=== PATIENT | female | born 1985 | race Caucasian/White ===

== ENCOUNTER 2017-11-23 15:54 | Inpatient (IN) | payer OTHER ==
[2017-11-23 16:38] LABS: #Basophils 0.1 thou/uL (0.0-0.2); #Eosinphils 0.3 thou/uL (0.0-0.7); #Lymphocytes 3.8 thou/uL (1.20-3.40); #Monocytes 1.2 thou/uL (0.11-0.59); #Neutrophils 9.9 thou/uL (1.40-6.50); %Basophils 0.8 % (0.0-1.0); %Eosinophils 1.8 % (0.0-10.0); %Lymphocytes 24.7 % (21.0-51.0); %Neutrophils 64.7 % (42.0-75.0); Hemoglobin 12.1 g/dL (12.0-16.0); Mean Corpuscular HGB CONC 34.1 g/dL (32.0-36.0); Mean Corpuscular Hemoglobin 29.2 pg (27.0-31.0); Mean Corpuscular Volume 85.8 fl (81.0-99.0); Mean Platelet Volume 7.8 fL (7.4-10.4); Platelet Count 387 thou/uL (130-400); RBC Distribution Width 11.4 % (11.5-14.5); Red Blood Cell (RBC) Count 4.14 mill/uL (4.20-5.40); White Blood Cell (WBC) Count 15.3 thou/uL (4.8-10.8)
[2017-11-23 16:52] LABS: ALT (SGPT) 32 U/L (8-55); AST (SGOT) 15 U/L (5-34); Alkaline Phosphatase 68 U/L (40-150); Anion Gap 14 mmol/L (10-20); BUN (Urea Nitrogen) 19 mg/dL (7.0-18.7); Bilirubin, Total 0.1 mg/dL (0.2-1.2); Calc. Creatinine Clearance 0 mL/min (70-130); Calcium 9.6 mg/dL (7.8-10.44); Carbon Dioxide 23 mmol/L (22-29); Chloride 96 mmol/L (98-107); Estimated GFR-MDRD 87; Glucose 516 mg/dL (70-105); Lipase 38 U/L (8-78); Potassium 4.4 mmol/L (3.5-5.1); Sodium 129 mmol/L (136-145)
--- NOTE | 2017-11-23 17:07 | RAD ---
LEFT HAND THREE VIEWS: 11/23/17 HISTORY: Left hand pain, trauma. FINDINGS/IMPRESSION: No acute fracture or dislocation is identified. POS: GENNY
[2017-11-23] MEDS ORDERED: Insulin Regular 300 UNITS/3 ML VIAL ONE (17:38)
[2017-11-23] MEDS ORDERED: Piperacillin/Tazobactam 3.375 GM VIAL ONE (17:38)
[2017-11-23] MEDS ORDERED: Sodium Chloride 0.9% 100 ML ONE (17:53)
[2017-11-23] MEDS ORDERED: Nicotine 21 MG PATCH ONE (18:16)
[2017-11-23 20:27] VITALS: BMI 21.2
[2017-11-23] MEDS ORDERED: Sodium Chloride 0.9% 1,000 ML IV SCH (20:45)
[2017-11-23] MEDS ORDERED: Dextrose 5% in Water 1,000 ML IV PRN (21:22)
[2017-11-23] MEDS ORDERED: HumaLOG 300 UNITS/3 ML VIAL SC PRN ×2 (21:22)
[2017-11-23] MEDS ORDERED: Dextrose 50% Abboject 50 ML SYRINGE SLOW IVP PRN (21:22)
[2017-11-23] MEDS ORDERED: Morphine 5 MG/ML SYRINGE SLOW IVP SCH (21:30)
[2017-11-23] MEDS ORDERED: Insulin Detemir 100 UNITS/ML 50 UNITS in Pre-Filled Syringe 1 EACH SC SCH (21:30)
[2017-11-23] MEDS ORDERED: Insulin Detemir 100 UNITS/ML 25 UNITS in Pre-Filled Syringe 1 EACH SC SCH (23:00)
[2017-11-23] MEDS ORDERED: Albuterol Sulfate 2.5 mg/3 ml Neb NEB PRN (23:42)
[2017-11-23] MEDS ORDERED: Acetaminophen 325 MG TAB PO PRN (23:42)
[2017-11-24] MEDS: Sodium Chloride 0.9% 1,000 ML IV SCH ×4 (00:01→23:38)
[2017-11-24] MEDS: HYDROcodone/Acetaminophen 5/325 mg Tablet PO PRN ×5 (00:17→23:43)
[2017-11-24] MEDS: Piperacillin/Tazobactam 3.375 GM in Sodium Chloride 0.9% 100 ML IVPB SCH ×7 (00:35→23:37)
[2017-11-24] MEDS: Ibuprofen 600 MG TAB PO PRN ×2 (00:37→06:21)
[2017-11-24] MEDS ORDERED: Piperacillin/Tazobactam 3.375 GM in Sodium Chloride 0.9% 100 ML IVPB SCH (02:00)
[2017-11-24] MEDS ORDERED: Vancomycin HCl 1 GM in Premix Bag 1 BAG IVPB SCH (04:00)
[2017-11-24] MEDS: Morphine 5 MG/ML SYRINGE SLOW IVP PRN ×4 (04:17→17:21)
[2017-11-24] MEDS: Vancomycin HCl 1 GM in Premix Bag 1 BAG IVPB SCH ×2 (04:21→15:28)
[2017-11-24 04:26] LABS: #Basophils 0.1 thou/uL (0.0-0.2); #Eosinphils 0.3 thou/uL (0.0-0.7); #Lymphocytes 3.9 thou/uL (1.20-3.40); #Monocytes 0.9 thou/uL (0.11-0.59); #Neutrophils 8.8 thou/uL (1.40-6.50); %Basophils 0.4 % (0.0-1.0); %Eosinophils 1.8 % (0.0-10.0); %Lymphocytes 28.1 % (21.0-51.0); %Monocytes 6.4 % (0.0-10.0); %Neutrophils 63.2 % (42.0-75.0); Hemoglobin 12.2 g/dL (12.0-16.0); Mean Corpuscular HGB CONC 34.1 g/dL (32.0-36.0); Mean Corpuscular Hemoglobin 30.3 pg (27.0-31.0); Mean Corpuscular Volume 88.7 fl (81.0-99.0); Platelet Count 390 thou/uL (130-400); RBC Distribution Width 11.6 % (11.5-14.5); Red Blood Cell (RBC) Count 4.02 mill/uL (4.20-5.40); White Blood Cell (WBC) Count 13.9 thou/uL (4.8-10.8)
[2017-11-24 04:30] LABS: Hemoglobin A1c 11.4 % (4.0-6.0)
[2017-11-24 04:45] LABS: Anion Gap 12 mmol/L (10-20); BUN (Urea Nitrogen) 10 mg/dL (7.0-18.7); Calc. Creatinine Clearance 107 mL/min (70-130); Calcium 9.1 mg/dL (7.8-10.44); Carbon Dioxide 22 mmol/L (22-29); Chloride 100 mmol/L (98-107); Estimated GFR-MDRD Greater than 90; Glucose 262 mg/dL (70-105); Potassium 4.4 mmol/L (3.5-5.1); Sodium 130 mmol/L (136-145)
[2017-11-24] MEDS ORDERED: Sodium Chloride 0.9% 1,000 ML IV SCH (06:00)
--- NOTE | 2017-11-24 06:31 | HP ---
PRIMARY CARE PHYSICIAN: Rodney____Starr PRESENTING COMPLAINT: Hand pain. HISTORY OF PRESENT ILLNESS: A 32-year-old female with a past medical history of diabetes mellitus an d asthma who presents to the emergency room with complaints of pain in her left fifth digit. She rep orts that while doing dishes, she accidentally hit her left hand on the kitchen counter while shaking her hands dry. Since then she has had pain, swelling, and redness to the fifth digit spread into th e mid forearm. The pain is dull, 10/10 throbbing with no aggravating or relieving factors. It is as sociated with erythema and warmth. She reports no fevers, chills, shortness of breath, nausea, vomit ing, diarrhea. PAST MEDICAL HISTORY: Diabetes mellitus, legally blind, asthma. PAST SURGICAL HISTORY: D&C, . FAMILY HISTORY: Reviewed and noncontributory. SOCIAL HISTORY: Smokes cigarettes and drinks alcohol occasionally. Does not use illicit drugs. ALLERGIES: None. HOME MEDICATIONS: Buspirone 10 mg b.i.d., nicotine 21 mg patch transdermal daily, zolpidem 5 mg at b edtime, fluoxetine 10 mg daily, Humalog 5-7 units t.i.d. with meals subcutaneously, insulin detemir 28 units b.i.d. REVIEW OF SYSTEMS: Twelve point review of systems conducted and negative except as stated in HPI. PHYSICAL EXAMINATION: GENERAL: In mild distress from pain. HEENT: Normocephalic, atraumatic. Not pale, anicteric. Moist mucous membranes. RESPIRATORY: Vesicular breath sounds bilaterally. No wheezes or rales. CARDIOVASCULAR: Regular rate and rhythm, S1 and S2 only. No murmurs, rubs or gallops. ABDOMEN: Soft, nontender, nondistended. Bowel sounds positive. No hepatosplenomegaly. NEUROLOGIC: Alert and well oriented to time, place and person. No focal deficits. SKIN: Erythema, differential warmth and swelling in the left fifth digit. MUSCULOSKELETAL: Differential warmth, erythema and limited range of movement of the left fifth digit with what seems to be some fluid collection. ASSESSMENT AND PLAN: 1. Left hand cellulitis/flexor tenosynovitis. She has been started on pain control and broad spectr um antibiotics. We will get a consultation with Hand Surgery, Dr. Lopez who stated that the ortho pedic surgery should be consulted first. 2. Diabetes mellitus. The patient is hyperglycemic. We will hydrate with normal saline and reinsti tute her home regimen and sliding scale insulin on a diabetic diet as well as hypoglycemia protocol w ill also be instituted. We will obtain A1c in the a.m. 3. Tobacco abuse. We will continue on nicotine patch and counseled on cessation. LABORATORY DATA: Sodium 129, anion gap 14, glucose 516 on arrival, but improved to 356. Lactic acid 1.2. Hematology with leukocytosis 15.3. Beta hydroxybutyrate normal. Hand x-ray, this revealed no acute fracture or dislocation. CODE STATUS: FULL CODE.
[2017-11-24] MEDS ORDERED: Chloraseptic Spray 180 ml Bottle PO PRN (07:33)
[2017-11-24] MEDS ORDERED: Milk Of Magnesia 30 ML UDCUP PO PRN (07:33)
[2017-11-24] MEDS ORDERED: Loratadine 10 MG TAB PO PRN (07:33)
[2017-11-24] MEDS ORDERED: Sodium Chloride 0.65% Nasal 44 ML BOT EA NARE PRN (07:33)
[2017-11-24] MEDS ORDERED: hydrALAZINE 20 MG/ML VIAL SLOW IVP PRN (07:33)
[2017-11-24] MEDS ORDERED: Eucerin (Mineral Oil/Petrolatum,White) 30 gm Jar TOP PRN (07:33)
[2017-11-24] MEDS ORDERED: Artificial Tears 18 DROP/0.9 ML EA EYE PRN (07:33)
[2017-11-24] MEDS ORDERED: Mag-Al 1200 mg/1200 mg/30 ML UDCUP PO PRN (07:33)
[2017-11-24] MEDS ORDERED: Loperamide HCl 2 MG CAP PO PRN (07:33)
[2017-11-24] MEDS ORDERED: Ondansetron ODT 4 MG TAB PO PRN (07:33)
[2017-11-24] MEDS ORDERED: Ondansetron HCl/PF 4 MG/2 ML Vial IVP PRN ×2 (07:33→18:34)
[2017-11-24] MEDS ORDERED: Diabetic Tussin 200 MG/10 ML UDCUP PO PRN (07:33)
[2017-11-24] MEDS: Nicotine 21 MG PATCH TD SCH (08:32)
[2017-11-24] MEDS: Famotidine 20 MG TAB PO SCH ×2 (08:32→21:14)
[2017-11-24] MEDS: FLUoxetine HCl 10 MG CAP PO SCH (08:32)
[2017-11-24] MEDS: HumaLOG 300 UNITS/3 ML VIAL SC SCH ×3 (08:33→15:32)
[2017-11-24] MEDS: Docusate 100 MG CAP PO SCH ×2 (08:33→21:13)
[2017-11-24] MEDS: busPIRone HCl 10 MG TAB PO SCH ×2 (08:33→21:14)
[2017-11-24] MEDS: Insulin Detemir 100 UNITS/ML 35 UNITS in Pre-Filled Syringe 1 EACH SC SCH ×2 (08:34→21:14)
[2017-11-24] MEDS ORDERED: Insulin Detemir 100 UNITS/ML 50 UNITS in Pre-Filled Syringe 1 EACH SC SCH (09:00)
[2017-11-24] MEDS ORDERED: Insulin Detemir 100 UNITS/ML 25 UNITS in Pre-Filled Syringe 1 EACH SC SCH ×2 (09:00→21:00)
--- NOTE | 2017-11-24 09:27 | PDOC.PN ---
- Subjective Encounter Start Date: 11/24/17 Encounter Start Time: 08:20 -: old records requested/rev pt has left hand pain, left little finger is swollen, red and tender - Objective Resuscitation Status: Resuscitation Status FULL:Full Resuscitation MAR Reviewed: Yes Vital Signs & Weight: Vital Signs (12 hours) Temp Pulse Resp BP Pulse Ox 11/24/17 08:00 97.3 F L 100 16 110/73 96 11/24/17 04:00 97.8 F 110 H 20 107/75 96 11/24/17 00:00 97.4 F L 117 H 20 121/83 93 L Weight Weight 116 lb Result Diagrams: 11/24/17 03:52 11/24/17 03:52 Additional Labs: Accuchecks 11/24/17 11/23/17 05:25 20:50 POC Glucose 212 H 356 H Radiology Reviewed by me: Yes Phys Exam - Physical Examination Constitutional: NAD HEENT: PERRLA, moist MMs, sclera anicteric Neck: no JVD, supple Respiratory: no wheezing, no rales, no rhonchi Cardiovascular: RRR, no significant murmur, no rub Gastrointestinal: soft, non-tender, no distention, positive bowel sounds Musculoskeletal: no edema, pulses present left litter finger cellulitis Neurological: non-focal, normal sensation, moves all 4 limbs Psychiatric: normal affect, A&O x 3 Skin: no rash, normal turgor Dx/Plan (1) Cellulitis of left hand Code(s): L03.114 - CELLULITIS OF LEFT UPPER LIMB Status: Acute (2) Hyponatremia Code(s): E87.1 - HYPO-OSMOLALITY AND HYPONATREMIA Status: Acute (3) Systemic inflammatory response syndrome (SIRS) due to infection Code(s): A41.9 - SEPSIS, UNSPECIFIED ORGANISM Status: Acute (4) Anxiety and depression Code(s): F41.9 - ANXIETY DISORDER, UNSPECIFIED; F32.9 - MAJOR DEPRESSIVE DISORDER, SINGLE EPISODE, UNSPECIFIED Status: Chronic (5) Asthma Code(s): J45.909 - UNSPECIFIED ASTHMA, UNCOMPLICATED Status: Chronic (6) Diabetes type 2, uncontrolled Code(s): E11.65 - TYPE 2 DIABETES MELLITUS WITH HYPERGLYCEMIA Status: Chronic (7) Tobacco abuse Code(s): Z72.0 - TOBACCO USE Status: Chronic - Plan cont current plan of care, continue antibiotics * increase levemir insulin * continue ivf * pain control * add toradol * hand surgeon consulted * medication reviewed as below * symptomatic treatment. * continue vancomycin and zosyn * home medication reconciled Review of Systems - Review of Systems Constitutional: negative: fever, chills, sweats, weakness, malaise, other Eyes: negative: Pain, Vision Change, Conjunctivae Inflammation, Eyelid Inflammation, Redness, Other ENT: negative: Ear Pain, Ear Discharge, Nose Pain, Nose Discharge, Nose Congestion, Mouth Pain, Mouth Swelling, Throat Pain, Throat Swelling, Other Respiratory: negative: Cough, Dry, Shortness of Breath, Hemoptysis, SOB with Excertion, Pleuritic Pain, Sputum, Wheezing Cardiovascular: negative: chest pain, palpitations, orthopnea, paroxysmal nocturnal dyspnea, edema, light headedness, other Gastrointestinal: negative: Nausea, Vomiting, Abdominal Pain, Diarrhea, Constipation, Melena, Hematochezia, Other Genitourinary: negative: Dysuria, Frequency, Incontinence, Hematuria, Retention , Other Musculoskeletal: Hand Pain. negative: Neck Pain, Shoulder Pain, Arm Pain, Back Pain, Leg Pain, Foot Pain, Other Skin: negative: Rash, Lesions, Aj, Bruising, Other - Medications/Allergies Allergies/Adverse Reactions: Allergies Allergy/AdvReac Type Severity Reaction Status Date / Time No Known Allergies Allergy Verified 11/23/17 20:46 Medications: Current Medications Acetaminophen (Tylenol) 650 mg PO Q4H PRN PRN Reason: Headache/Fever or Pain Hydrocodone Bitart/Acetaminophen ([employer] 5/325) 1 tab PO Q4H PRN PRN Reason: Moderate Pain (4-6) Last Admin: 11/24/17 06:27 Dose: 1 tab Al Hydroxide/Mg Hydroxide (Maalox) 15 ml PO Q4H PRN PRN Reason: Heartburn or Indigestion Albuterol Sulfate (Ventolin) 2.5 mg NEB [id number] PRN PRN Reason: Wheezing Artificial Tears (Tears Naturale) 0 drop EA EYE PRN PRN PRN Reason: Dry Eyes Buspirone HCl (Buspar) 10 mg PO BID [facility] Last Admin: 11/24/17 08:33 Dose: 10 mg Dextrose/Water (Dextrose 50%) 25 gm SLOW IVP PRN PRN PRN Reason: Hypoglycemia Docusate Sodium (Colace) 100 mg PO BID REPLACED BY [facility] Last Admin: 11/24/17 08:33 Dose: Not Given Famotidine (Pepcid) 20 mg PO BID REPLACED BY [facility] Last Admin: 11/24/17 08:32 Dose: 20 mg Fluoxetine HCl (Prozac) 10 mg PO DAILY REPLACED BY [facility] Last Admin: 11/24/17 08:32 Dose: 10 mg Glucagon (Glucagon) 1 mg IM PRN PRN PRN Reason: Hypoglycemia Guaifenesin (Robitussin Sf) 200 mg PO Q4H PRN PRN Reason: Cough Hydralazine HCl (Apresoline) 10 mg SLOW IVP Q4H PRN PRN Reason: Systolic BP > 180 Dextrose/Water (D5w) 1,000 mls @ 0 mls/hr IV .Q0M PRN; As Directed PRN Reason: Hypoglycemia Piperacillin Sod/Tazobactam (Sod 3.375 gm/ Sodium Chloride) 100 mls @ 200 mls/ hr IVPB Q6HR REPLACED BY [facility] Last Admin: 11/24/17 06:23 Dose: 100 mls Sodium Chloride (Normal Saline 0.9%) 1,000 mls @ 125 mls/hr IV .Q8H REPLACED BY [facility] Last Admin: 11/24/17 08:34 Dose: Not Given Vancomycin HCl 1 gm/ Device 200 mls @ 200 mls/hr IVPB 0400,1600 REPLACED BY [facility] Last Admin: 11/24/17 04:21 Dose: 200 mls Insulin Detemir 35 units/ (Miscellaneous Medication) 0.35 mls @ 0 mls/hr SC HS REPLACED BY [facility] Insulin Detemir 35 units/ (Miscellaneous Medication) 0.35 mls @ 0 mls/hr SC QAM REPLACED BY [facility] Last Admin: 11/24/17 08:34 Dose: Not Given Ibuprofen (Motrin) 600 mg PO Q6H PRN PRN Reason: Mild-Moderate Pain (1-5) Last Admin: 11/24/17 06:21 Dose: 600 mg Insulin Human Lispro (Humalog) 5 units SC TID-[facility] Last Admin: 11/24/17 08:33 Dose: Not Given Insulin Human Lispro (Humalog) 0 units SC .AGGRESSIVE SLIDING PRN PRN Reason: Aggressive Correctional Scale Insulin Human Lispro (Humalog) 0 units SC .BEDTIME SLIDING SC PRN PRN Reason: Bedtime Correctional Scale Loperamide HCl (Imodium) 2 mg PO PRN PRN PRN Reason: Diarrhea/Loose Stools Loratadine (Claritin) 10 mg PO DAILYPRN PRN PRN Reason: Sinus Symptoms Magnesium Hydroxide (Milk Of Magnesium) 30 ml PO DAILYPRN PRN PRN Reason: Constipation Mineral Oil/White Petrolatum (Eucerin Cream) 0 gm TOP BIDPRN PRN PRN Reason: Dry Skin Miscellaneous Medication (Pharmacy To Dose) 1 each IVPB PRN PRN PRN Reason: Pharmacy to dose Morphine Sulfate (Morphine) 4 mg SLOW IVP Q4H PRN PRN Reason: Severe Pain (7-10) Last Admin: 11/24/17 08:31 Dose: 4 mg Nicotine (Nicoderm Patch) 21 mg TD DAILY REPLACED BY [facility] Last Admin: 11/24/17 08:32 Dose: 21 mg Ondansetron HCl (Zofran Odt) 4 mg PO Q6H PRN PRN Reason: Nausea/Vomiting Ondansetron HCl (Zofran) 4 mg IVP Q6H PRN PRN Reason: Nausea/Vomiting Phenol (Chloraseptic [place] 180 Ml Bot) 0 ml PO PRN PRN PRN Reason: Sore Throat Sodium Chloride (Flush - Normal Saline) 10 ml IVF Q12HR REPLACED BY [facility] Last Admin: 11/24/17 08:35 Dose: Not Given Sodium Chloride (Flush - Normal Saline) 10 ml IVF PRN PRN PRN Reason: Saline Flush Last Admin: 11/23/17 21:50 Dose: 10 ml Sodium Chloride ([place] Nasal [place] 0.65%) 0 ml EA NARE QIDPRN PRN PRN Reason: Nasal Congestion Zolpidem Tartrate (Ambien) 5 mg PO HS PRN PRN Reason: Insomnia
[2017-11-24] MEDS: Ketorolac Tromethamine 30 MG/ML VIAL IVP PRN (11:19)
[2017-11-24] MEDS ORDERED: Ondansetron HCl/PF 4 MG/2 ML Vial ONE (13:58)
[2017-11-24] MEDS ORDERED: Propofol 200 MG/20 ML VIAL ONE (13:58)
[2017-11-24] MEDS ORDERED: PHENYLEPHRINE-NS 100 MCG/ML 10 ML SYRINGE ONE (13:58)
[2017-11-24] MEDS ORDERED: Lidocaine 1% PF 5 ML VIAL ONE (13:58)
[2017-11-24] MEDS ORDERED: Lidocaine 1% (PF) 30 ML VIAL ONE (18:09)
[2017-11-24] MEDS ORDERED: Bupivacaine 0.5% 10 ML VIAL ONE (18:09)
[2017-11-24] MEDS ORDERED: Bacitracin Zinc Ointment 30 gm TUBE ONE (18:10)
[2017-11-24] MEDS ORDERED: Thrombin 5000 UNITS/5 ML VIAL ONE (18:10)
[2017-11-24] MEDS ORDERED: Promethazine HCl 25 MG/ML VIAL SLOW IVP PRN (18:34)
[2017-11-24] MEDS ORDERED: Promethazine HCl 25 MG/ML VIAL IM PRN (18:34)
[2017-11-24] MEDS ORDERED: Fentanyl 250 MCG/5 ML VIAL ONE (18:37)
[2017-11-24] MEDS ORDERED: Midazolam HCl 2 mg/2 ml Vial ONE (18:42)
[2017-11-24] MEDS ORDERED: Morphine 2 MG/ML SYRINGE ONE (18:42)
[2017-11-24] MEDS ORDERED: Sodium Chloride 0.9% 10 ML ONE (18:51)
[2017-11-24] MEDS: Zolpidem Tartrate 5 MG TAB PO PRN (23:43)
[2017-11-25 04:12] LABS: #Basophils 0.1 thou/uL (0.0-0.2); #Eosinphils 0.2 thou/uL (0.0-0.7); #Lymphocytes 2.9 thou/uL (1.20-3.40); #Monocytes 0.8 thou/uL (0.11-0.59); #Neutrophils 9.8 thou/uL (1.40-6.50); %Basophils 0.8 % (0.0-1.0); %Eosinophils 1.8 % (0.0-10.0); %Lymphocytes 20.7 % (21.0-51.0); %Monocytes 5.8 % (0.0-10.0); %Neutrophils 70.9 % (42.0-75.0); Hemoglobin 12.4 g/dL (12.0-16.0); Mean Corpuscular HGB CONC 33.6 g/dL (32.0-36.0); Mean Corpuscular Hemoglobin 30.5 pg (27.0-31.0); Mean Corpuscular Volume 90.8 fl (81.0-99.0); Mean Platelet Volume 7.4 fL (7.4-10.4); Platelet Count 354 thou/uL (130-400); RBC Distribution Width 11.8 % (11.5-14.5); Red Blood Cell (RBC) Count 4.06 mill/uL (4.20-5.40); White Blood Cell (WBC) Count 13.8 thou/uL (4.8-10.8)
[2017-11-25 04:29] LABS: Anion Gap 14 mmol/L (10-20); BUN (Urea Nitrogen) 8 mg/dL (7.0-18.7); Calc. Creatinine Clearance 98 mL/min (70-130); Calcium 8.9 mg/dL (7.8-10.44); Carbon Dioxide 21 mmol/L (22-29); Chloride 102 mmol/L (98-107); Estimated GFR-MDRD Greater than 90; Glucose 274 mg/dL (70-105); Potassium 4.4 mmol/L (3.5-5.1); Sodium 133 mmol/L (136-145)
[2017-11-25 04:32] LABS: Vancomycin, Trough 8.1 ug/mL
[2017-11-25] MEDS: Vancomycin HCl 1 GM in Premix Bag 1 BAG IVPB SCH ×3 (04:56→21:55)
[2017-11-25] MEDS: Ketorolac Tromethamine 30 MG/ML VIAL IVP PRN ×3 (04:57→19:41)
[2017-11-25] MEDS: Piperacillin/Tazobactam 3.375 GM in Sodium Chloride 0.9% 100 ML IVPB SCH ×3 (06:04→17:33)
[2017-11-25] MEDS: HYDROcodone/Acetaminophen 5/325 mg Tablet PO PRN ×3 (06:07→17:33)
--- NOTE | 2017-11-25 06:31 | OP ---
DATE OF PROCEDURE: 11/24/2017 PREOPERATIVE DIAGNOSIS: Small finger abscess in distal phalanx with sheath involvement (infectious f lexor tenosynovitis). POSTOPERATIVE DIAGNOSIS: Small finger abscess distal phalanx with sheath involvement (infectious fl exor tenosynovitis). FINDINGS: 1. Left small finger gross thick purulence, almost 1.5 to 2 mL. 2. Gross purulence found at the level of the sheath between A3 and A2 pulleys and then mucopurulence was found proximal to the A1 annel inlet. PROCEDURES PERFORMED: 1. Left small finger abscess incision and drainage. 2. Left small finger sheath, flexor drainage with indwelling catheter. INDICATION: The patient reports puncture wound to the finger approximately 3-4 days ago and noticed poor ability to move the finger last night, increased pain. He reports [place] signs. TOURNIQUET TIME: 17 minutes. ESTIMATED BLOOD LOSS: 10 mL. Finger became pink when the tourniquet was released, except for the ar ea around the nail bed where there was pallor because of the more extensive dissection. DESCRIPTION OF PROCEDURE: After successful general LMA technique, limb was prepped and draped. She had 10 mL of 0.5% Marcaine block proximal to the A1 annel, because we knew we would have to make an incision here. We then exsanguinated the limb, inflated tourniquet to 250 mmHg pressure. Then, we w ent to our sites. The patient then had incision in the midline beginning at the DIP joint and going to the level of the distal third of the nail. On the ulnar side, he had a Parviz incision outlined c entered over the PIP joint, approximately 2 cm, and then 1.5 cm A1 annel incision beginning just pro ximal to the A1 annel obliquely. This was carried through the skin and subcutaneous tissue beginnin g with the distal phalanx first and we opened the distal one half, there was gross purulence escaping to the point we had to perform irrigation and debridement here using a tenotomy scissor, a [place] bl stefany, and irrigation with excisional technique, findings of gross purulence and mild wound necrosis. Once we finished this, we then opened the tendon sheath using the Parviz incision over the PIP joint until we could identify the interspace between the A2 and A3 annel. We also placed a 16-gauge Angio cath. We then irrigated out the tendon with 15-20 mL normal saline with antibiotics inside. We ernie monroy made a proximal incision, visualized the digital nerve, and protected the nail. Seeing the A1 pu lley as the tendon entered, we lifted up the tendon and placed a catheter here, 18-gauge. Now, we h ad thorough irrigation. We irrigated a total of 100 mL through this mechanism, and then placed 900 m L in the distal tip where the gross purulence first started and was greatest. We left the indwelling catheter in the proximal incision, not the distal one, covered it with wet-to- dry dressings and a bulky dressing with a Kerlix. The patient left the operating room without eviden ce of anesthetic or operative complication.
[2017-11-25] MEDS: Morphine 5 MG/ML SYRINGE SLOW IVP PRN ×4 (07:30→19:36)
[2017-11-25] MEDS: HumaLOG 300 UNITS/3 ML VIAL SC SCH ×3 (07:32→17:41)
[2017-11-25] MEDS: Famotidine 20 MG TAB PO SCH ×2 (07:32→20:45)
[2017-11-25] MEDS: FLUoxetine HCl 10 MG CAP PO SCH (07:32)
[2017-11-25] MEDS: busPIRone HCl 10 MG TAB PO SCH ×2 (07:32→20:45)
[2017-11-25] MEDS: Nicotine 21 MG PATCH TD SCH (07:32)
[2017-11-25] MEDS: Docusate 100 MG CAP PO SCH ×2 (07:32→20:45)
--- NOTE | 2017-11-25 09:06 | PDOC.PN ---
- Subjective Encounter Start Date: 11/25/17 Encounter Start Time: 07:20 Patient seen and examined. No new complaints. No overnight events s/p I & D, still has left finger and hand pain - Objective Resuscitation Status: Resuscitation Status FULL:Full Resuscitation MAR Reviewed: Yes Vital Signs & Weight: Vital Signs (12 hours) Temp Pulse Resp BP Pulse Ox 11/25/17 07:46 98.1 F 106 H 18 98 11/25/17 04:00 98.1 F 106 H 18 132/86 98 11/25/17 00:00 97.4 F L 105 H 18 119/79 96 11/24/17 22:30 103 H 18 119/84 96 11/24/17 22:00 98.3 F 101 H 18 129/81 100 11/24/17 21:30 98 18 138/96 H 98 Weight Weight 116 lb Result Diagrams: 11/25/17 03:39 11/25/17 03:39 Additional Labs: Accuchecks 11/25/17 11/24/17 11/24/17 05:08 23:51 20:42 POC Glucose 238 H 308 H 175 H 11/24/17 11/24/17 16:15 11:53 POC Glucose 158 H 74 Phys Exam - Physical Examination Constitutional: NAD HEENT: PERRLA, moist MMs, sclera anicteric, oral pharynx no lesions Neck: no JVD, supple Respiratory: no wheezing, no rales, no rhonchi Cardiovascular: RRR, no significant murmur, no rub Gastrointestinal: soft, non-tender, no distention, positive bowel sounds Musculoskeletal: no edema, pulses present left hand with dressing Neurological: non-focal, normal sensation, moves all 4 limbs Lymphatic: no nodes Psychiatric: normal affect, A&O x 3 Skin: no rash, normal turgor Dx/Plan (1) Cellulitis of left hand Code(s): L03.114 - CELLULITIS OF LEFT UPPER LIMB Status: Acute (2) Cellulitis of little finger Code(s): L03.019 - CELLULITIS OF UNSPECIFIED FINGER Status: Acute (3) Flexor tenosynovitis of finger Code(s): M65.9 - SYNOVITIS AND TENOSYNOVITIS, UNSPECIFIED Status: Acute (4) Hyponatremia Code(s): E87.1 - HYPO-OSMOLALITY AND HYPONATREMIA Status: Acute (5) Systemic inflammatory response syndrome (SIRS) due to infection Code(s): A41.9 - SEPSIS, UNSPECIFIED ORGANISM Status: Acute (6) Anxiety and depression Code(s): F41.9 - ANXIETY DISORDER, UNSPECIFIED; F32.9 - MAJOR DEPRESSIVE DISORDER, SINGLE EPISODE, UNSPECIFIED Status: Chronic (7) Asthma Code(s): J45.909 - UNSPECIFIED ASTHMA, UNCOMPLICATED Status: Chronic (8) Diabetes type 2, uncontrolled Code(s): E11.65 - TYPE 2 DIABETES MELLITUS WITH HYPERGLYCEMIA Status: Chronic (9) Tobacco abuse Code(s): Z72.0 - TOBACCO USE Status: Chronic - Plan cont current plan of care, continue antibiotics * continue vancomycin and zosyn * wound care * pain control * monitor blood sugar * follow culture * medication reviewed as below * symptomatic treatment. Review of Systems - Review of Systems Constitutional: negative: fever, chills, sweats, weakness, malaise, other Eyes: negative: Pain, Vision Change, Conjunctivae Inflammation, Eyelid Inflammation, Redness, Other ENT: negative: Ear Pain, Ear Discharge, Nose Pain, Nose Discharge, Nose Congestion, Mouth Pain, Mouth Swelling, Throat Pain, Throat Swelling, Other Respiratory: negative: Cough, Dry, Shortness of Breath, Hemoptysis, SOB with Excertion, Pleuritic Pain, Sputum, Wheezing Cardiovascular: negative: chest pain, palpitations, orthopnea, paroxysmal nocturnal dyspnea, edema, light headedness, other Gastrointestinal: negative: Nausea, Vomiting, Abdominal Pain, Diarrhea, Constipation, Melena, Hematochezia, Other Genitourinary: negative: Dysuria, Frequency, Incontinence, Hematuria, Retention , Other Musculoskeletal: Hand Pain. negative: Neck Pain, Shoulder Pain, Arm Pain, Back Pain, Leg Pain, Foot Pain, Other Skin: negative: Rash, Lesions, Aj, Bruising, Other - Medications/Allergies Allergies/Adverse Reactions: Allergies Allergy/AdvReac Type Severity Reaction Status Date / Time No Known Allergies Allergy Verified 11/23/17 20:46 Medications: Current Medications Acetaminophen (Tylenol) 650 mg PO Q4H PRN PRN Reason: Headache/Fever or Pain Hydrocodone Bitart/Acetaminophen ([place] 5/325) 1 tab PO Q4H PRN PRN Reason: Moderate Pain (4-6) Last Admin: 11/25/17 06:07 Dose: 1 tab Al Hydroxide/Mg Hydroxide (Maalox) 15 ml PO Q4H PRN PRN Reason: Heartburn or Indigestion Albuterol Sulfate (Ventolin) 2.5 mg NEB [id number] PRN PRN Reason: Wheezing Artificial Tears (Tears Naturale) 0 drop EA EYE PRN PRN PRN Reason: Dry Eyes Buspirone HCl (Buspar) 10 mg PO BID [facility] Last Admin: 11/25/17 07:32 Dose: 10 mg Dextrose/Water (Dextrose 50%) 25 gm SLOW IVP PRN PRN PRN Reason: Hypoglycemia Last Admin: 11/24/17 12:22 Dose: 25 gm Docusate Sodium (Colace) 100 mg PO BID [facility] Last Admin: 11/25/17 07:32 Dose: Not Given Famotidine (Pepcid) 20 mg PO BID [facility] Last Admin: 11/25/17 07:32 Dose: 20 mg Fluoxetine HCl (Prozac) 10 mg PO DAILY [facility] Last Admin: 11/25/17 07:32 Dose: 10 mg Glucagon (Glucagon) 1 mg IM PRN PRN PRN Reason: Hypoglycemia Guaifenesin (Robitussin Sf) 200 mg PO Q4H PRN PRN Reason: Cough Hydralazine HCl (Apresoline) 10 mg SLOW IVP Q4H PRN PRN Reason: Systolic BP > 180 Dextrose/Water (D5w) 1,000 mls @ 0 mls/hr IV .Q0M PRN; As Directed PRN Reason: Hypoglycemia Piperacillin Sod/Tazobactam (Sod 3.375 gm/ Sodium Chloride) 100 mls @ 200 mls/ hr IVPB Q6HR [facility] Last Admin: 11/25/17 06:04 Dose: 100 mls Sodium Chloride (Normal Saline 0.9%) 1,000 mls @ 125 mls/hr IV .Q8H [facility] Last Admin: 11/24/17 23:38 Dose: Not Given Insulin Detemir 35 units/ (Miscellaneous Medication) 0.35 mls @ 0 mls/hr SC HS [facility] Last Admin: 11/24/17 21:14 Dose: 0.35 mls Insulin Detemir 35 units/ (Miscellaneous Medication) 0.35 mls @ 0 mls/hr SC QAM [facility] Last Admin: 11/24/17 08:34 Dose: Not Given Vancomycin HCl 1 gm/ Device 200 mls @ 200 mls/hr IVPB Q8HR [facility] Insulin Human Lispro (Humalog) 5 units SC TID-WM [facility] Last Admin: 11/25/17 07:32 Dose: 5 unit Insulin Human Lispro (Humalog) 0 units SC .AGGRESSIVE SLIDING PRN PRN Reason: Aggressive Correctional Scale Insulin Human Lispro (Humalog) 0 units SC .BEDTIME SLIDING SC PRN PRN Reason: Bedtime Correctional Scale Last Admin: 11/24/17 23:51 Dose: 4 unit Ketorolac Tromethamine (Toradol) 15 mg IVP Q6H PRN PRN Reason: Pain Stop: 11/29/17 09:29 Last Admin: 11/25/17 04:57 Dose: 15 mg Loperamide HCl (Imodium) 2 mg PO PRN PRN PRN Reason: Diarrhea/Loose Stools Loratadine (Claritin) 10 mg PO DAILYPRN PRN PRN Reason: Sinus Symptoms Magnesium Hydroxide (Milk Of Magnesium) 30 ml PO DAILYPRN PRN PRN Reason: Constipation Mineral Oil/White Petrolatum (Eucerin Cream) 0 gm TOP BIDPRN PRN PRN Reason: Dry Skin Miscellaneous Medication (Pharmacy To Dose) 1 each IVPB PRN PRN PRN Reason: Pharmacy to dose Morphine Sulfate (Morphine) 4 mg SLOW IVP Q4H PRN PRN Reason: Severe Pain (7-10) Last Admin: 11/25/17 07:30 Dose: 4 mg Nicotine (Nicoderm Patch) 21 mg TD DAILY [facility] [place] Last Admin: 11/25/17 07:32 Dose: 21 mg Ondansetron HCl (Zofran Odt) 4 mg PO Q6H PRN PRN Reason: Nausea/Vomiting Ondansetron HCl (Zofran) 4 mg IVP Q6H PRN PRN Reason: Nausea/Vomiting Phenol (Chloraseptic [place] 180 Ml Bot) 0 ml PO PRN PRN PRN Reason: Sore Throat Sodium Chloride (Flush - Normal Saline) 10 ml IVF Q12HR [facility] [place] Last Admin: 11/24/17 21:15 Dose: 10 ml Sodium Chloride (Flush - Normal Saline) 10 ml IVF PRN PRN PRN Reason: Saline Flush Last Admin: 11/23/17 21:50 Dose: 10 ml Sodium Chloride ([place] Nasal [place] 0.65%) 0 ml EA NARE QIDPRN PRN PRN Reason: Nasal Congestion Zolpidem Tartrate (Ambien) 5 mg PO HS PRN PRN Reason: Insomnia Last Admin: 11/24/17 23:43 Dose: 5 mg
[2017-11-25] MEDS: Insulin Detemir 100 UNITS/ML 35 UNITS in Pre-Filled Syringe 1 EACH SC SCH ×2 (10:45→21:54)
[2017-11-25] MEDS: Sodium Chloride 0.9% 1,000 ML IV SCH ×3 (10:45→21:54)
[2017-11-25] MEDS ORDERED: HYDROcodone/Acetaminophen 10/325 mg Tablet PO PRN (19:57)
[2017-11-25] MEDS ORDERED: Ketorolac Tromethamine 30 MG/ML VIAL IVP SCH ×2 (20:15→22:00)
[2017-11-25] MEDS: Zolpidem Tartrate 5 MG TAB PO PRN (21:55)
[2017-11-25] MEDS: HYDROcodone/Acetaminophen 10/325 mg Tablet PO PRN (21:56)
[2017-11-26] MEDS: Piperacillin/Tazobactam 3.375 GM in Sodium Chloride 0.9% 100 ML IVPB SCH ×4 (00:09→18:10)
[2017-11-26] MEDS: HYDROcodone/Acetaminophen 10/325 mg Tablet PO PRN ×4 (04:23→18:07)
[2017-11-26 05:44] LABS: Vancomycin, Trough 14.1 ug/mL
[2017-11-26] MEDS: Ketorolac Tromethamine 30 MG/ML VIAL IVP SCH ×3 (06:15→22:06)
[2017-11-26] MEDS: Morphine 5 MG/ML SYRINGE SLOW IVP PRN ×3 (06:18→22:05)
[2017-11-26] MEDS: Vancomycin HCl 1 GM in Premix Bag 1 BAG IVPB SCH ×3 (06:21→22:06)
[2017-11-26 06:44] LABS: #Basophils 0.1 thou/uL (0.0-0.2); #Eosinphils 0.3 thou/uL (0.0-0.7); #Lymphocytes 3.4 thou/uL (1.20-3.40); #Monocytes 0.6 thou/uL (0.11-0.59); #Neutrophils 5.3 thou/uL (1.40-6.50); %Eosinophils 3.1 % (0.0-10.0); %Monocytes 5.8 % (0.0-10.0); Hemoglobin 12.1 g/dL (12.0-16.0); Mean Corpuscular Hemoglobin 30.7 pg (27.0-31.0); Mean Corpuscular Volume 90.2 fl (81.0-99.0); Platelet Count 388 thou/uL (130-400); RBC Distribution Width 11.8 % (11.5-14.5); Red Blood Cell (RBC) Count 3.94 mill/uL (4.20-5.40); White Blood Cell (WBC) Count 9.7 thou/uL (4.8-10.8)
[2017-11-26] MEDS: Insulin Detemir 100 UNITS/ML 35 UNITS in Pre-Filled Syringe 1 EACH SC SCH ×2 (08:14→20:31)
[2017-11-26] MEDS: Nicotine 21 MG PATCH TD SCH (08:15)
[2017-11-26] MEDS: Sodium Chloride 0.9% 1,000 ML IV SCH ×2 (08:16→14:15)
[2017-11-26] MEDS: FLUoxetine HCl 10 MG CAP PO SCH (08:19)
[2017-11-26] MEDS: busPIRone HCl 10 MG TAB PO SCH ×2 (08:19→20:31)
[2017-11-26] MEDS: Famotidine 20 MG TAB PO SCH ×2 (08:20→20:31)
[2017-11-26] MEDS: Docusate 100 MG CAP PO SCH ×2 (08:20→18:11)
[2017-11-26] MEDS: HumaLOG 300 UNITS/3 ML VIAL SC SCH ×3 (08:20→16:35)
--- NOTE | 2017-11-26 11:52 | PDOC.PN ---
- Subjective Encounter Start Date: 11/26/17 Encounter Start Time: 08:15 Patient seen and examined. No new complaints. No overnight events - Objective Resuscitation Status: Resuscitation Status FULL:Full Resuscitation MAR Reviewed: Yes Vital Signs & Weight: Vital Signs (12 hours) Temp Pulse Resp BP Pulse Ox 11/26/17 08:00 97.5 F L 91 16 133/90 99 Weight Weight 116 lb I&O: 11/25/17 11/26/17 11/27/17 06:59 06:59 06:59 Intake Total 4500 Balance 4500 Result Diagrams: 11/26/17 04:30 11/25/17 03:39 Additional Labs: Accuchecks 11/26/17 11/25/17 11/25/17 05:10 21:30 20:43 POC Glucose 112 H 92 67 L 11/25/17 16:56 POC Glucose 177 H Phys Exam - Physical Examination Constitutional: NAD HEENT: PERRLA, moist MMs, sclera anicteric Neck: no JVD, supple Respiratory: no wheezing, no rales, no rhonchi Cardiovascular: RRR, no significant murmur, no rub Gastrointestinal: soft, non-tender, no distention, positive bowel sounds Musculoskeletal: no edema, pulses present left hand with dressing Neurological: non-focal, normal sensation, moves all 4 limbs Psychiatric: normal affect, A&O x 3 Skin: no rash, normal turgor Dx/Plan (1) Cellulitis of left hand Code(s): L03.114 - CELLULITIS OF LEFT UPPER LIMB Status: Acute (2) Cellulitis of little finger Code(s): L03.019 - CELLULITIS OF UNSPECIFIED FINGER Status: Acute (3) Flexor tenosynovitis of finger Code(s): M65.9 - SYNOVITIS AND TENOSYNOVITIS, UNSPECIFIED Status: Acute (4) Hyponatremia Code(s): E87.1 - HYPO-OSMOLALITY AND HYPONATREMIA Status: Acute (5) Systemic inflammatory response syndrome (SIRS) due to infection Code(s): A41.9 - SEPSIS, UNSPECIFIED ORGANISM Status: Acute (6) Anxiety and depression Code(s): F41.9 - ANXIETY DISORDER, UNSPECIFIED; F32.9 - MAJOR DEPRESSIVE DISORDER, SINGLE EPISODE, UNSPECIFIED Status: Chronic (7) Asthma Code(s): J45.909 - UNSPECIFIED ASTHMA, UNCOMPLICATED Status: Chronic (8) Diabetes type 2, uncontrolled Code(s): E11.65 - TYPE 2 DIABETES MELLITUS WITH HYPERGLYCEMIA Status: Chronic (9) Tobacco abuse Code(s): Z72.0 - TOBACCO USE Status: Chronic - Plan cont current plan of care, continue antibiotics * overall pt is improving * pain controlled * follow culture * continue current iv antibiotics * medication reviewed as below * symptomatic treatment. Review of Systems - Review of Systems Constitutional: negative: fever, chills, sweats, weakness, malaise, other ENT: negative: Ear Pain, Ear Discharge, Nose Pain, Nose Discharge, Nose Congestion, Mouth Pain, Mouth Swelling, Throat Pain, Throat Swelling, Other Respiratory: negative: Cough, Dry, Shortness of Breath, Hemoptysis, SOB with Excertion, Pleuritic Pain, Sputum, Wheezing Cardiovascular: negative: chest pain, palpitations, orthopnea, paroxysmal nocturnal dyspnea, edema, light headedness, other Gastrointestinal: negative: Nausea, Vomiting, Abdominal Pain, Diarrhea, Constipation, Melena, Hematochezia, Other Genitourinary: negative: Dysuria, Frequency, Incontinence, Hematuria, Retention , Other Musculoskeletal: Hand Pain. negative: Neck Pain, Shoulder Pain, Arm Pain, Back Pain, Leg Pain, Foot Pain, Other Skin: negative: Rash, Lesions, Ja, Bruising, Other - Medications/Allergies Allergies/Adverse Reactions: Allergies Allergy/AdvReac Type Severity Reaction Status Date / Time No Known Allergies Allergy Verified 11/23/17 20:46 Medications: Current Medications Acetaminophen (Tylenol) 650 mg PO Q4H PRN PRN Reason: Headache/Fever or Pain Hydrocodone Bitart/Acetaminophen ([place] 10/325) 1 tab PO Q4H PRN PRN Reason: PAIN SCALE 1-5 Last Admin: 11/26/17 08:18 Dose: 1 tab Hydrocodone Bitart/Acetaminophen ([place] 10/325) 2 tab PO Q4H PRN PRN Reason: PAIN SCALE 6-10 Al Hydroxide/Mg Hydroxide (Maalox) 15 ml PO Q4H PRN PRN Reason: Heartburn or Indigestion Albuterol Sulfate (Ventolin) 2.5 mg NEB [id number] PRN PRN Reason: Wheezing Artificial Tears (Tears Naturale) 0 drop EA EYE PRN PRN PRN Reason: Dry Eyes Buspirone HCl (Buspar) 10 mg PO BID [facility] Last Admin: 11/26/17 08:19 Dose: 10 mg Dextrose/Water (Dextrose 50%) 25 gm SLOW IVP PRN PRN PRN Reason: Hypoglycemia Last Admin: 11/24/17 12:22 Dose: 25 gm Docusate Sodium (Colace) 100 mg PO BID [facility] Last Admin: 11/26/17 08:20 Dose: Not Given Famotidine (Pepcid) 20 mg PO BID [facility] Last Admin: 11/26/17 08:20 Dose: Not Given Fluoxetine HCl (Prozac) 10 mg PO DAILY [facility] Last Admin: 11/26/17 08:19 Dose: 10 mg Glucagon (Glucagon) 1 mg IM PRN PRN PRN Reason: Hypoglycemia Guaifenesin (Robitussin Sf) 200 mg PO Q4H PRN PRN Reason: Cough Hydralazine HCl (Apresoline) 10 mg SLOW IVP Q4H PRN PRN Reason: Systolic BP > 180 Dextrose/Water (D5w) 1,000 mls @ 0 mls/hr IV .Q0M PRN; As Directed PRN Reason: Hypoglycemia Piperacillin Sod/Tazobactam (Sod 3.375 gm/ Sodium Chloride) 100 mls @ 200 mls/ hr IVPB Q6HR [facility] Last Admin: 11/26/17 05:06 Dose: 100 mls Sodium Chloride (Normal Saline 0.9%) 1,000 mls @ 125 mls/hr IV .Q8H [facility] Last Admin: 11/26/17 08:16 Dose: 1,000 mls Insulin Detemir 35 units/ (Miscellaneous Medication) 0.35 mls @ 0 mls/hr SC HS [facility] Last Admin: 11/25/17 21:54 Dose: 0.35 mls Insulin Detemir 35 units/ (Miscellaneous Medication) 0.35 mls @ 0 mls/hr SC QAM [facility] Last Admin: 11/26/17 08:14 Dose: 0.35 mls Vancomycin HCl 1 gm/ Device 200 mls @ 200 mls/hr IVPB Q8HR [facility] Last Admin: 11/26/17 06:21 Dose: 200 mls Insulin Human Lispro (Humalog) 5 units SC TID-WM [facility] Last Admin: 11/26/17 08:20 Dose: Not Given Insulin Human Lispro (Humalog) 0 units SC .AGGRESSIVE SLIDING PRN PRN Reason: Aggressive Correctional Scale Insulin Human Lispro (Humalog) 0 units SC .BEDTIME SLIDING SC PRN PRN Reason: Bedtime Correctional Scale Last Admin: 11/24/17 23:51 Dose: 4 unit Ketorolac Tromethamine (Toradol) 30 mg IVP Q8HR [facility] Stop: 11/30/17 14:01 Last Admin: 11/26/17 06:15 Dose: 30 mg Loperamide HCl (Imodium) 2 mg PO PRN PRN PRN Reason: Diarrhea/Loose Stools Loratadine (Claritin) 10 mg PO DAILYPRN PRN PRN Reason: Sinus Symptoms Magnesium Hydroxide (Milk Of Magnesium) 30 ml PO DAILYPRN PRN PRN Reason: Constipation Mineral Oil/White Petrolatum (Eucerin Cream) 0 gm TOP BIDPRN PRN PRN Reason: Dry Skin Miscellaneous Medication (Pharmacy To Dose) 1 each IVPB PRN PRN PRN Reason: Pharmacy to dose Morphine Sulfate (Morphine) 4 mg SLOW IVP Q4H PRN PRN Reason: Severe Pain (7-10) Last Admin: 11/26/17 06:18 Dose: 4 mg Nicotine (Nicoderm Patch) 21 mg TD DAILY [facility] Last Admin: 11/26/17 08:15 Dose: 21 mg Ondansetron HCl (Zofran Odt) 4 mg PO Q6H PRN PRN Reason: Nausea/Vomiting Ondansetron HCl (Zofran) 4 mg IVP Q6H PRN PRN Reason: Nausea/Vomiting Phenol (Chloraseptic [place] 180 Ml Bot) 0 ml PO PRN PRN PRN Reason: Sore Throat Sodium Chloride (Flush - Normal Saline) 10 ml IVF Q12HR [facility] Last Admin: 11/26/17 08:17 Dose: 10 ml Sodium Chloride (Flush - Normal Saline) 10 ml IVF PRN PRN PRN Reason: Saline Flush Last Admin: 11/23/17 21:50 Dose: 10 ml Sodium Chloride ([place] Nasal [place] 0.65%) 0 ml EA NARE QIDPRN PRN PRN Reason: Nasal Congestion Zolpidem Tartrate (Ambien) 5 mg PO HS PRN PRN Reason: Insomnia Last Admin: 11/25/17 21:55 Dose: 5 mg
[2017-11-27] MEDS: HYDROcodone/Acetaminophen 10/325 mg Tablet PO PRN ×5 (00:33→20:24)
[2017-11-27] MEDS: Piperacillin/Tazobactam 3.375 GM in Sodium Chloride 0.9% 100 ML IVPB SCH ×4 (00:34→17:01)
[2017-11-27] MEDS: Sodium Chloride 0.9% 1,000 ML IV SCH ×4 (00:35→13:53)
[2017-11-27 04:56] LABS: #Basophils 0.1 thou/uL (0.0-0.2); #Eosinphils 0.3 thou/uL (0.0-0.7); #Lymphocytes 2.9 thou/uL (1.20-3.40); #Monocytes 0.6 thou/uL (0.11-0.59); #Neutrophils 5.1 thou/uL (1.40-6.50); %Basophils 0.9 % (0.0-1.0); %Lymphocytes 32.7 % (21.0-51.0); %Monocytes 6.4 % (0.0-10.0); Hemoglobin 12.4 g/dL (12.0-16.0); Mean Corpuscular HGB CONC 33.8 g/dL (32.0-36.0); Mean Corpuscular Hemoglobin 30.9 pg (27.0-31.0); Mean Corpuscular Volume 91.5 fl (81.0-99.0); Platelet Count 419 thou/uL (130-400); RBC Distribution Width 11.7 % (11.5-14.5); White Blood Cell (WBC) Count 8.9 thou/uL (4.8-10.8)
[2017-11-27] MEDS: Vancomycin HCl 1 GM in Premix Bag 1 BAG IVPB SCH ×3 (06:03→22:01)
[2017-11-27] MEDS: Ketorolac Tromethamine 30 MG/ML VIAL IVP SCH ×3 (06:03→22:02)
[2017-11-27] MEDS: FLUoxetine HCl 10 MG CAP PO SCH (08:00)
[2017-11-27] MEDS: busPIRone HCl 10 MG TAB PO SCH ×2 (08:00→20:26)
[2017-11-27] MEDS: Famotidine 20 MG TAB PO SCH ×2 (08:00→20:25)
[2017-11-27] MEDS: Docusate 100 MG CAP PO SCH ×2 (08:00→20:50)
[2017-11-27] MEDS: HumaLOG 300 UNITS/3 ML VIAL SC SCH ×3 (08:03→16:10)
[2017-11-27] MEDS: Insulin Detemir 100 UNITS/ML 35 UNITS in Pre-Filled Syringe 1 EACH SC SCH ×2 (08:03→20:50)
[2017-11-27] MEDS: Nicotine 21 MG PATCH TD SCH (08:20)
[2017-11-27] MEDS: Morphine 5 MG/ML SYRINGE SLOW IVP PRN ×2 (13:44→22:00)
--- NOTE | 2017-11-27 20:00 | PDOC.PN ---
- Subjective Encounter Start Date: 11/27/17 Encounter Start Time: 11:00 Patient seen and examined. No new complaints. No overnight events. Some discomfort over the surgical site. - Objective Resuscitation Status: Resuscitation Status FULL:Full Resuscitation MAR Reviewed: Yes Vital Signs & Weight: Vital Signs (12 hours) Temp Pulse Resp BP Pulse Ox 11/27/17 19:50 97.5 F L 115 H 16 11/27/17 19:42 97.5 F L 115 H 16 131/89 95 Weight Weight 116 lb I&O: 11/26/17 11/27/17 11/28/17 06:59 06:59 06:59 Intake Total 4500 5000 Balance 4500 5000 Result Diagrams: 11/27/17 03:55 11/25/17 03:39 Additional Labs: Accuchecks 11/27/17 11/27/17 11/27/17 16:38 11:53 05:05 POC Glucose 198 H 230 H 109 11/26/17 20:14 POC Glucose 136 H Phys Exam - Physical Examination Constitutional: NAD Neck: no nodes, no JVD Respiratory: no wheezing, no rhonchi Cardiovascular: RRR, no rub Gastrointestinal: soft, non-tender, positive bowel sounds Musculoskeletal: no edema dressing over the left hand Dx/Plan - Plan DVT proph w/SCDs IMPRESSION: 1. Infected left flexor tenosynovitis/Cellulitis with abscess s/p I&D 2. DM 2 - on Levemir with sliding scale 3. Anxiety and Depression 4. Tob dep - counselled 5. Other issues per previous notes PLAN: * Cont Vancomcyin * Reduce IVF * Pain control * Monitor Vancomycin level * Ambulate * Cont current meds as below Review of Systems - Review of Systems Respiratory: negative: Cough, Dry, Shortness of Breath, Hemoptysis, SOB with Excertion, Pleuritic Pain, Sputum, Wheezing Cardiovascular: negative: chest pain, palpitations, orthopnea, paroxysmal nocturnal dyspnea, edema, light headedness Gastrointestinal: negative: Nausea, Vomiting, Abdominal Pain, Diarrhea, Constipation, Melena, Hematochezia - Medications/Allergies Allergies/Adverse Reactions: Allergies Allergy/AdvReac Type Severity Reaction Status Date / Time No Known Allergies Allergy Verified 11/23/17 20:46 Medications: Current Medications Acetaminophen (Tylenol) 650 mg PO Q4H PRN PRN Reason: Headache/Fever or Pain Hydrocodone Bitart/Acetaminophen ([place] 10/325) 1 tab PO Q4H PRN PRN Reason: PAIN SCALE 1-5 Last Admin: 11/27/17 14:55 Dose: 1 tab Hydrocodone Bitart/Acetaminophen ([place] 10/325) 2 tab PO Q4H PRN PRN Reason: PAIN SCALE 6-10 Last Admin: 11/27/17 11:09 Dose: 2 tab Al Hydroxide/Mg Hydroxide (Maalox) 15 ml PO Q4H PRN PRN Reason: Heartburn or Indigestion Albuterol Sulfate (Ventolin) 2.5 mg NEB [id number] PRN PRN Reason: Wheezing Artificial Tears (Tears Naturale) 0 drop EA EYE PRN PRN PRN Reason: Dry Eyes Buspirone HCl (Buspar) 10 mg PO BID [facility] Last Admin: 11/27/17 08:00 Dose: 10 mg Dextrose/Water (Dextrose 50%) 25 gm SLOW IVP PRN PRN PRN Reason: Hypoglycemia Last Admin: 11/24/17 12:22 Dose: 25 gm Docusate Sodium (Colace) 100 mg PO BID [facility] Last Admin: 11/27/17 08:00 Dose: 100 mg Famotidine (Pepcid) 20 mg PO BID [facility] Last Admin: 11/27/17 08:00 Dose: 20 mg Fluoxetine HCl (Prozac) 10 mg PO DAILY [facility] Last Admin: 11/27/17 08:00 Dose: 10 mg Glucagon (Glucagon) 1 mg IM PRN PRN PRN Reason: Hypoglycemia Guaifenesin (Robitussin Sf) 200 mg PO Q4H PRN PRN Reason: Cough Hydralazine HCl (Apresoline) 10 mg SLOW IVP Q4H PRN PRN Reason: Systolic BP > 180 Dextrose/Water (D5w) 1,000 mls @ 0 mls/hr IV .Q0M PRN; As Directed PRN Reason: Hypoglycemia Piperacillin Sod/Tazobactam (Sod 3.375 gm/ Sodium Chloride) 100 mls @ 200 mls/ hr IVPB Q6HR [facility] Last Admin: 11/27/17 17:01 Dose: 100 mls Insulin Detemir 35 units/ (Miscellaneous Medication) 0.35 mls @ 0 mls/hr SC HS [facility] Last Admin: 11/26/17 20:31 Dose: 0.35 mls Insulin Detemir 35 units/ (Miscellaneous Medication) 0.35 mls @ 0 mls/hr SC QAM [facility] Last Admin: 11/27/17 08:03 Dose: Not Given Vancomycin HCl 1 gm/ Device 200 mls @ 200 mls/hr IVPB Q8HR [facility] Last Admin: 11/27/17 14:49 Dose: 200 mls Sodium Chloride (Normal Saline 0.9%) 1,000 mls @ 70 mls/hr IV .[id number] [facility] Last Admin: 11/27/17 13:53 Dose: Not Given Insulin Human Lispro (Humalog) 5 units SC TID-WM [facility] Last Admin: 11/27/17 16:10 Dose: Not Given Insulin Human Lispro (Humalog) 0 units SC .AGGRESSIVE SLIDING PRN PRN Reason: Aggressive Correctional Scale Insulin Human Lispro (Humalog) 0 units SC .BEDTIME SLIDING SC PRN PRN Reason: Bedtime Correctional Scale Last Admin: 11/24/17 23:51 Dose: 4 unit Ketorolac Tromethamine (Toradol) 30 mg IVP Q8HR [facility] Stop: 11/30/17 14:01 Last Admin: 11/27/17 13:44 Dose: 30 mg Loperamide HCl (Imodium) 2 mg PO PRN PRN PRN Reason: Diarrhea/Loose Stools Loratadine (Claritin) 10 mg PO DAILYPRN PRN PRN Reason: Sinus Symptoms Magnesium Hydroxide (Milk Of Magnesium) 30 ml PO DAILYPRN PRN PRN Reason: Constipation Mineral Oil/White Petrolatum (Eucerin Cream) 0 gm TOP BIDPRN PRN PRN Reason: Dry Skin Miscellaneous Medication (Pharmacy To Dose) 1 each IVPB PRN PRN PRN Reason: Pharmacy to dose Morphine Sulfate (Morphine) 4 mg SLOW IVP Q4H PRN PRN Reason: Severe Pain (7-10) Last Admin: 11/27/17 13:44 Dose: 4 mg Nicotine (Nicoderm Patch) 21 mg TD DAILY [facility] Last Admin: 11/27/17 08:20 Dose: 21 mg Ondansetron HCl (Zofran Odt) 4 mg PO Q6H PRN PRN Reason: Nausea/Vomiting Ondansetron HCl (Zofran) 4 mg IVP Q6H PRN PRN Reason: Nausea/Vomiting Phenol (Chloraseptic [place] 180 Ml Bot) 0 ml PO PRN PRN PRN Reason: Sore Throat Sodium Chloride (Flush - Normal Saline) 10 ml IVF Q12HR [facility] Last Admin: 11/27/17 08:04 Dose: Not Given Sodium Chloride (Flush - Normal Saline) 10 ml IVF PRN PRN PRN Reason: Saline Flush Last Admin: 11/23/17 21:50 Dose: 10 ml Sodium Chloride ([place] Nasal [place] 0.65%) 0 ml EA NARE QIDPRN PRN PRN Reason: Nasal Congestion Zolpidem Tartrate (Ambien) 5 mg PO HS PRN PRN Reason: Insomnia Last Admin: 11/25/17 21:55 Dose: 5 mg
[2017-11-28] MEDS: Piperacillin/Tazobactam 3.375 GM in Sodium Chloride 0.9% 100 ML IVPB SCH ×3 (00:53→11:01)
[2017-11-28] MEDS: HYDROcodone/Acetaminophen 10/325 mg Tablet PO PRN ×3 (00:53→11:23)
[2017-11-28] MEDS: Zolpidem Tartrate 5 MG TAB PO PRN (00:57)
[2017-11-28] MEDS: Sodium Chloride 0.9% 1,000 ML IV SCH (05:20)
[2017-11-28] MEDS: Morphine 5 MG/ML SYRINGE SLOW IVP PRN ×2 (06:32→07:43)
[2017-11-28] MEDS: Ketorolac Tromethamine 30 MG/ML VIAL IVP SCH (06:32)
[2017-11-28] MEDS: Vancomycin HCl 1 GM in Premix Bag 1 BAG IVPB SCH (06:33)
[2017-11-28 07:42] VITALS: BP 144/93; TEMP 98.2
[2017-11-28] MEDS: HumaLOG 300 UNITS/3 ML VIAL SC SCH ×2 (07:48→11:01)
[2017-11-28] MEDS: FLUoxetine HCl 10 MG CAP PO SCH (07:51)
[2017-11-28] MEDS: busPIRone HCl 10 MG TAB PO SCH (07:51)
[2017-11-28] MEDS: Nicotine 21 MG PATCH TD SCH (07:52)
[2017-11-28] MEDS: Famotidine 20 MG TAB PO SCH (07:52)
[2017-11-28] MEDS: Insulin Detemir 100 UNITS/ML 35 UNITS in Pre-Filled Syringe 1 EACH SC SCH (07:52)
[2017-11-28] MEDS: Docusate 100 MG CAP PO SCH (07:52)
--- NOTE | 2017-11-29 09:13 | DIS ---
DATE OF DISCHARGE: 11/28/2017 DISCHARGE DISPOSITION: Home. FOLLOWUP: 1. Follow up with primary care physician at [facility] in 1 week. 2. Follow up with Dr. Lopez in 3 days. 3. Patient was seen on the day of discharge. Denies any new complaints. Pain controlled. INPATIENT PROCEDURES: On 11/24/2017, patient underwent incision and drainage of left small finger ab scess. She also had an indwelling catheter placed in the left small finger sheet. BRIEF HOSPITAL COURSE: The patient is a 32-year-old female with diabetes mellitus type 2, presented to the emergency room with swelling and pain in the left hand. Her workup was consistent with infect ed left flexor tenosynovitis with cellulitis requiring incision and drainage by Dr. Lopez. She wa s placed on broad spectrum antibiotics that have been changed to Bactrim and rifampin. Wound culture showed MRSA. She has been cleared by Dr. Lopez for discharge. FINAL DIAGNOSES: 1. Infected left flexor tenosynovitis with cellulitis status post incision and drainage. Patient wi ll continue Bactrim and rifampin. 2. Diabetes mellitus type 2. The patient will continue Levemir. 3. Anxiety and depression. 4. Tobacco dependence. 5. Leukocytosis on admission secondary to #1, resolved. 6. Elevated inflammatory markers. CRP was 6.6 secondary to #1. 7. Significant laboratory; hemoglobin A1c 11.4. Patient was counseled on diabetes. 8. Hyponatremia on admission, probably secondary to hyperglycemia. Plan of care was discussed with the patient. She stated understanding. Please note that patient was placed on 35 units of Levemir twice a day. Patient was advised to monit or her blood sugar closely.
[2017-11-30 10:22] LABS: Fungus Stain Final report (.)
[2017-11-30 10:22] LABS: Fungus Stain Final report (.)
== END 2017-11-28 12:01 | disposition home or self-care (01) | DRG 854 ==
LOC: SCSER 15:54 → T4-A 20:09
PROVIDERS: ADMIT Internal Medicine; ATTEND Internal Medicine
PROC: 0JBK0ZZ Excision of Left Hand Subcutaneous Tissue and Fascia, Open Approach (ICD-10-PCS; principal; 2017-11-24)
PROC: 0J9K00Z Drainage of Left Hand Subcutaneous Tissue and Fascia with Drainage Device, Open Approach (ICD-10-PCS; 2017-11-24)
DX: A41.02 Sepsis due to Methicillin resistant Staphylococcus aureus (principal); L02.512 Cutaneous abscess of left hand; E87.1 Hypo-osmolality and hyponatremia; E11.9 Type 2 diabetes mellitus without complications; F17.210 Nicotine dependence, cigarettes, uncomplicated; F32.9 Major depressive disorder, single episode, unspecified; M65.142 Other infective (teno)synovitis, left hand; H54.8 Legal blindness, as defined in USA; J45.909 Unspecified asthma, uncomplicated; Z79.4 Long term (current) use of insulin; W22.8XXA Striking against or struck by other objects, initial encounter; Y93.G1 Activity, food preparation and clean up; Y92.010 Kitchen of single-family (private) house as the place of occurrence of the external cause; F41.9 Anxiety disorder, unspecified; L03.012 Cellulitis of left finger
CPT/HCPCS: 36415; 36416; 80048; 80053; 80202; 82010; 83036; 83605; 83690; 85025; 86140; 87070; 87077; 87102; 87116; 87186; 87205; 87206; J2270; A4216; J1815; J1885; J2001; J2250; J2405; J2543; J2704; J3010; J3370; J3490; J7050